=== PATIENT | male | born 1955 | race Caucasian/White ===

== ENCOUNTER 2018-12-03 09:08 | Observation (INO) | payer OTHER ==
[2018-12-03] MEDS ORDERED: Sodium Chloride 0.9% 10 ML Syringe FLUSH PRN (09:29)
[2018-12-03] MEDS ORDERED: Sodium Chloride 0.9% 2.5 ML Syringe FLUSH PRN (09:29)
--- NOTE | 2018-12-03 09:41 | EDM.PDOC ---
ED HPI GENERAL MEDICAL PROBLEM - General Chief Complaint: Cardiovascular Problem Stated Complaint: DIZZINESS Time Seen by Provider: 12/03/18 09:25 Source of Information: Reports: Patient History Limitations: Reports: No Limitations - History of Present Illness INITIAL COMMENTS - FREE TEXT/NARRATIVE: HISTORY AND PHYSICAL: History of present illness: 63-year-old male presents to ER via private vehicle complaining of dizziness and blurry vision that started at approximately 5 AM this morning. Patient reports being seen at [facility] this morning and was told that his blood pressure was high and an EKG showed a right bundle branch block and was then sent over to the ER for further evaluation. On presentation to ER, patient reports that he feels dizzy when walking. He denies any room spinning sensation. He reports a history of high blood pressure, diabetes mellitus type II and hyperlipidemia. Patient reports that he's been taking all of his medications as prescribed and has not missed any doses. He reports being in his normal state of health recently and denies any illness. Furthermore, patient denies having any headache, sore throat, cough, shortness of breath, chest pain , palpitations, nausea, vomiting, diarrhea, constipation, numbness or tingling in extremities. Review of systems: As per history of present illness and below otherwise all systems reviewed and negative. Past medical history: As per history of present illness and as reviewed below otherwise noncontributory. Surgical history: As per history of present illness and as reviewed below otherwise noncontributory. Social history: No reported history of drug or alcohol abuse. Family history: As per history of present illness and as reviewed below otherwise noncontributory. Physical exam: HEENT: Atraumatic, normocephalic, pupils reactive, negative for conjunctival pallor or scleral icterus, mucous membranes moist, throat clear, neck supple, nontender, trachea midline. Lungs: Clear to auscultation, breath sounds equal bilaterally. Heart: S1S2, regular. Abdomen: Soft, nondistended, nontender. normal bowel sounds. Pelvis: Deferred. Genitourinary: Deferred. Rectal: Deferred. Extremities: Atraumatic. Neurovascular unremarkable. Neuro: Awake, alert, oriented. Cranial nerves II through XII unremarkable. Motor and sensory unremarkable throughout. Exam nonfocal. 5/5 strength in upper and lower extremities bilaterally. Diagnostics: CBC, CMP, Troponin, PT/INR, orthostatic vital signs CXR - no acute cardiopulmonary process EKG - right bundle branch block UA unremarkable CT head - mucosal thickening with possible air fluid level in left maxillary sinus Therapeutics: None Impression: 1. Dizziness 2. Hypokalemia Plan: 1. Patient accepted for admission by hospitalist Dr. Yang for observation. Definitive disposition and diagnosis as appropriate pending reevaluation and review of above. headache Pain Score (Numeric/FACES): 1 - Related Data Allergies Allergy/AdvReac Type Severity Reaction Status Date / Time No Known Allergies Allergy Verified 12/03/18 09:19 Home Meds: Home Meds Aspirin 81 mg PO DAILY 12/03/18 [History] Chlorthalidone 25 mg PO DAILY 12/03/18 [History] Cholecalciferol (Vitamin D3) [Vitamin D3] 4 tab PO DAILY 12/03/18 [History] Fish Oil/[place]-3 Fatty Acids [Fish Oil 1,000 MG] 1,000 mg PO BID 12/03/18 [ History] Lisinopril 20 mg PO DAILY 12/03/18 [History] Meloxicam 15 mg PO DAILY 12/03/18 [History] Metoprolol Succinate [Toprol XL 100mg] 50 mg PO DAILY 12/03/18 [History] amLODIPine [Norvasc] 10 mg PO DAILY 12/03/18 [History] atorvaSTATin Calcium [Atorvastatin Calcium] 80 mg PO BEDTIME 12/03/18 [History] metFORMIN [Glucophage] 1,000 mg PO BID 12/03/18 [History] Past Medical History Cardiovascular History: Reports: High Cholesterol, Hypertension, Other (See Below) Other Cardiovascular History: palpitations Musculoskeletal History: Reports: Arthritis Endocrine/Metabolic History: Reports: Diabetes, Type II - Past Surgical History GI Surgical History: Reports: Cholecystectomy Social & Family History - Family History Family Medical History: Noncontributory - Tobacco Use Smoking Status *Q: Never Smoker - Recreational Drug Use Recreational Drug Use: No ED ROS GENERAL - Review of Systems Review Of Systems: ROS reveals no pertinent complaints other than HPI. ED EXAM, GENERAL - Physical Exam Exam: See Below Course - Vital Signs Last Recorded V/S: Last Vital Signs Temp 96.5 F 12/03/18 09:14 Pulse 70 12/03/18 09:14 Resp 20 12/03/18 09:14 BP 159/97 H 12/03/18 09:14 Pulse Ox 98 10/15/19 09:14 Orthostatic Blood Pressure [ 143/91 Standing] Orthostatic Blood Pressure [ 139/83 Sitting] Orthostatic Blood Pressure [ 139/90 Supine] - Orders/Labs/Meds Orders: Active Orders 24 hr Category Date Time Status Patient Status [ADT] Stat ADT 12/03/18 11:00 Ordered Cardiac Monitoring [RC] . DIRECTED Care 12/03/18 09:29 Active EKG 12 Lead [EKG Documentation Completion] [RC] STAT Care 12/03/18 09:12 Active Orthostatic Vital Signs [RC] ASDIRECTED Care 12/03/18 09:29 Active MAGNESIUM [CHEM] Stat Lab 12/03/18 11:00 Ordered Sodium Chloride 0.9% [Saline Flush] Med 12/03/18 09:29 Active 10 ml FLUSH ASDIRECTED PRN Sodium Chloride 0.9% [Saline Flush] Med 12/03/18 09:29 Active 2.5 ml FLUSH ASDIRECTED PRN Saline Lock Insert [OM.PC] Stat Oth 12/03/18 09:29 Ordered Medication Orders Sodium Chloride (Saline Flush) 10 ml FLUSH ASDIRECTED PRN PRN Reason: Keep Vein Open Sodium Chloride (Saline Flush) 2.5 ml FLUSH ASDIRECTED PRN PRN Reason: Keep Vein Open Labs: Laboratory Tests 12/03/18 12/03/18 12/03/18 Range/Units 09:15 09:15 09:15 WBC 7.97 (4.0-11.0) K/uL RBC 5.12 (4.50-5.90) M/uL Hgb 15.8 (13.0-17.0) g/dL Hct 45.0 (38.0-50.0) % MCV 87.9 (80.0-98.0) fL MCH 30.9 (27.0-32.0) pg MCHC 35.1 (31.0-37.0) g/dL RDW Std Deviation 39.2 (28.0-62.0) fl RDW Coeff of Lauren 12 (11.0-15.0) % Plt Count 195 (150-400) K/uL MPV 11.90 (7.40-12.00) fL Neut % (Auto) 55.2 (48.0-80.0) % Lymph % (Auto) 23.2 (16.0-40.0) % Giles % (Auto) 11.7 (0.0-15.0) % Eos % (Auto) 9.5 H (0.0-7.0) % Baso % (Auto) 0.4 (0.0-1.5) % Neut # (Auto) 4.4 (1.4-5.7) K/uL Lymph # (Auto) 1.9 (0.6-2.4) K/uL Giles # (Auto) 0.9 H (0.0-0.8) K/uL Eos # (Auto) 0.8 H (0.0-0.7) K/uL Baso # (Auto) 0.0 (0.0-0.1) K/uL INR 0.95 Sodium 139 (136-148) mmol/L Potassium 2.8 L (3.5-5.1) mmol/L Chloride 98 (98-107) mmol/L Carbon Dioxide 30.6 (21.0-32.0) mmol/L BUN 16 (7.0-18.0) mg/dL Creatinine 1.0 (0.8-1.3) mg/dL Est Cr Clr Drug Dosing 85.45 mL/min Estimated GFR (MDRD) > 60.0 ml/min Glucose 174 H (74-106) mg/dL Calcium 9.0 (8.5-10.1) mg/dL Total Bilirubin 0.5 (0.2-1.0) mg/dL AST 26 (15-37) IU/L ALT 62 (14-63) IU/L Alkaline Phosphatase 67 (46-116) U/L Troponin I < 0.050 (0.000-0.056) ng/mL Total Protein 8.1 (6.4-8.2) g/dL Albumin 3.8 (3.4-5.0) g/dL Globulin 4.3 H (2.6-4.0) g/dL Albumin/Globulin Ratio 0.9 (0.9-1.6) Urine Color Urine Appearance Urine pH (5.0-8.0) Ur Specific [place] (1.001-1.035) Urine Protein (NEGATIVE) mg/dL Urine Glucose (UA) (NEGATIVE) mg/dL Urine Ketones (NEGATIVE) mg/dL Urine Occult Blood (NEGATIVE) Urine Nitrite (NEGATIVE) Urine Bilirubin (NEGATIVE) Urine Urobilinogen (<2.0) EU/dL Ur Leukocyte Esterase (NEGATIVE) 12/03/18 Range/Units 09:39 WBC (4.0-11.0) K/uL RBC (4.50-5.90) M/uL Hgb (13.0-17.0) g/dL Hct (38.0-50.0) % MCV (80.0-98.0) fL MCH (27.0-32.0) pg MCHC (31.0-37.0) g/dL RDW Std Deviation (28.0-62.0) fl RDW Coeff of Lauren (11.0-15.0) % Plt Count (150-400) K/uL MPV (7.40-12.00) fL Neut % (Auto) (48.0-80.0) % Lymph % (Auto) (16.0-40.0) % Giles % (Auto) (0.0-15.0) % Eos % (Auto) (0.0-7.0) % Baso % (Auto) (0.0-1.5) % Neut # (Auto) (1.4-5.7) K/uL Lymph # (Auto) (0.6-2.4) K/uL Giles # (Auto) (0.0-0.8) K/uL Eos # (Auto) (0.0-0.7) K/uL Baso # (Auto) (0.0-0.1) K/uL INR Sodium (136-148) mmol/L Potassium (3.5-5.1) mmol/L Chloride (98-107) mmol/L Carbon Dioxide (21.0-32.0) mmol/L BUN (7.0-18.0) mg/dL Creatinine (0.8-1.3) mg/dL Est Cr Clr Drug Dosing mL/min Estimated GFR (MDRD) ml/min Glucose (74-106) mg/dL Calcium (8.5-10.1) mg/dL Total Bilirubin (0.2-1.0) mg/dL AST (15-37) IU/L ALT (14-63) IU/L Alkaline Phosphatase (46-116) U/L Troponin I (0.000-0.056) ng/mL Total Protein (6.4-8.2) g/dL Albumin (3.4-5.0) g/dL Globulin (2.6-4.0) g/dL Albumin/Globulin Ratio (0.9-1.6) Urine Color YELLOW Urine Appearance CLEAR Urine pH 6.5 (5.0-8.0) Ur Specific Apex <= 1.005 (1.001-1.035) Urine Protein NEGATIVE (NEGATIVE) mg/dL Urine Glucose (UA) NEGATIVE (NEGATIVE) mg/dL Urine Ketones NEGATIVE (NEGATIVE) mg/dL Urine Occult Blood NEGATIVE (NEGATIVE) Urine Nitrite NEGATIVE (NEGATIVE) Urine Bilirubin NEGATIVE (NEGATIVE) Urine Urobilinogen 1.0 (<2.0) EU/dL Ur Leukocyte Esterase NEGATIVE (NEGATIVE) Meds: Medications Generic Name Dose Route Start Last Admin Trade Name Freq PRN Reason Stop Dose Admin Sodium Chloride 10 ml 12/03/18 09:29 Saline Flush FLUSH ASDIRECTED PRN Keep Vein Open Sodium Chloride 2.5 ml 12/03/18 09:29 Saline Flush FLUSH ASDIRECTED PRN Keep Vein Open Discontinued Medications Generic Name Dose Route Start Last Admin Trade Name Freq PRN Reason Stop Dose Admin Potassium Chloride 40 meq 12/03/18 10:39 Klor-Con M20 PO 12/03/18 10:40 ONETIME STA Departure - Departure Time of Disposition: 11:03 Disposition: Refer to Observation Condition: Fair Clinical Impression: Hypokalemia, Dizziness Referrals: PCP,Unobtain [Primary Care Provider] - Forms: ED Department Discharge Additional Instructions: The following information is given to patients seen in the emergency department who are being discharged to home. This information is to outline your options for follow-up care. We provide all patients seen in our emergency department with a follow-up referral. The need for follow-up, as well as the timing and circumstances, are variable depending upon the specifics of your emergency department visit. If you don't have a primary care physician on staff, we will provide you with a referral. We always advise you to contact your personal physician following an emergency department visit to inform them of the circumstance of the visit and for follow-up with them and/or the need for any referrals to a consulting specialist. The emergency department will also refer you to a specialist when appropriate. This referral assures that you have the opportunity for follow-up care with a specialist. All of these measure are taken in an effort to provide you with optimal care, which includes your follow-up. Under all circumstances we always encourage you to contact your private physician who remains a resource for coordinating your care. When calling for follow-up care, please make the office aware that this follow-up is from your recent emergency room visit. If for any reason you are refused follow-up, please contact the [facility] Emergency Department at and asked to speak to the emergency department charge nurse. - My Orders Last 24 Hours: My Active Orders 12/03/18 09:12 EKG 12 Lead [EKG Documentation Completion] [RC] STAT 12/03/18 09:29 Cardiac Monitoring [RC] . DIRECTED Orthostatic Vital Signs [RC] ASDIRECTED Sodium Chloride 0.9% [Saline Flush] 10 ml FLUSH ASDIRECTED PRN Sodium Chloride 0.9% [Saline Flush] 2.5 ml FLUSH ASDIRECTED PRN Saline Lock Insert [OM.PC] Stat 12/03/18 11:00 Patient Status [ADT] Stat MAGNESIUM [CHEM] Stat - Assessment/Plan Last 24 Hours: My Active Orders 12/03/18 09:12 EKG 12 Lead [EKG Documentation Completion] [RC] STAT 12/03/18 09:29 Cardiac Monitoring [RC] . DIRECTED Orthostatic Vital Signs [RC] ASDIRECTED Sodium Chloride 0.9% [Saline Flush] 10 ml FLUSH ASDIRECTED PRN Sodium Chloride 0.9% [Saline Flush] 2.5 ml FLUSH ASDIRECTED PRN Saline Lock Insert [OM.PC] Stat 12/03/18 11:00 Patient Status [ADT] Stat MAGNESIUM [CHEM] Stat
--- NOTE | 2018-12-03 09:50 | CR ---
INDICATION: Dizziness TECHNIQUE: Chest 1 view. COMPARISON: None FINDINGS: Cardiovascular and mediastinum: Heart size and vasculature are normal in caliber and appearance. Mediastinum is within normal limits. Lungs and pleural space: Lungs are clear. No sign of infiltrate or mass. No sign of pleural effusion. No pneumothorax. Bones and soft tissues: Multiple remote right upper and mid rib fractures. IMPRESSION: Unremarkable chest. Dictated by Bautista Addison MD @ 12/03/2018 9:49:02 AM Dictated by: Bautista Addison MD @ 12/03/2018 09:49:09 (Electronically Signed)
[2018-12-03 10:01] LABS: BLOOD UREA NITROGEN,BUN 16 mg/dL (7.0-18.0); CARBON DIOXIDE,CO2 30.6 mmol/L (21.0-32.0); CHLORIDE,CL 98 mmol/L (98-107); GLUCOSE RANDOM 174 mg/dL (74-106); POTASSIUM,K 2.8 mmol/L (3.5-5.1); SODIUM,NA 139 mmol/L (136-148)
[2018-12-03] MEDS ORDERED: Potassium Chloride 20 MEQ Tab.ER PO STA (10:39)
--- NOTE | 2018-12-03 10:49 | CT ---
Head CT Technique: Multiple axial sections through the brain were obtained. Intravenous contrast was not utilized. Comparison: No prior intracranial imaging is available. Findings: Moderate mucosal thickening is seen within the left maxillary sinus with questionable air-fluid level. Other paranasal sinuses that are seen appear clear. Ventricles along with basal cisterns and sulci over the convexities are mildly prominent. No abnormal parenchymal densities are seen. No evidence of intracranial hemorrhage. No midline shift or mass effect is seen. Bone window settings were reviewed which show the mastoid sinuses to appear clear. No acute calvarial abnormality is appreciated. Impression: 1. Mucosal thickening and possible air-fluid level within the left maxillary sinus raising the possibility of acute sinusitis. 2. Mild generalized atrophy. 3. No acute intracranial abnormality is otherwise seen. Diagnostic code #3 MTDD
[2018-12-03] MEDS ORDERED: Acetaminophen 325 MG Tab PO PRN (12:05)
[2018-12-03] MEDS ORDERED: Ondansetron 4 MG/2 ML SDV IVPUSH PRN (12:05)
[2018-12-03] MEDS ORDERED: Sodium Chloride 0.9% with KCl 1,000 ML IV SCH (12:15)
--- NOTE | 2018-12-03 12:21 | PCM.HP.2 ---
H&P History of Present Illness - General Date of Service: 12/03/18 Admit Problem/Dx: Admission Diagnosis/Problem Admission Diagnosis/Problem Dizziness Source of Information: Patient History Limitations: Reports: No Limitations - History of Present Illness Initial Comments - Free Text/Narative: This 63 year old male with pmh of HTN, Dm Type 2, chronic back pain presented initially to [facility] with complaints of dizziness, he was referred to ED after EKG noted to have RBBB and BP elevated 160/90s. He reports the dizziness started yesterday and continued when he woke up today. he reports he is just dizzy, it doesn't get worse with movement of his head. He doesn't feel like the room is spinning or like he is spinning, he just feels off. Mild intermittent blurred vision. Reports mild sinus congestion and sore throat. No fevers or chills at home, no neck pain, no ear pain or fullness. No sinus pressure or pain. Reports he otherwise has been feeling well at home, just thought his sinuses were a little dry feeling. He denies abdominal pain or N/V or diarrhea. No constipation. Denies chest pain or SOB. Denies history of CAD, no recent stress test and he has never been evaluated by a [employer] per his report. He reports he is complaint with all medications. He denies tobacco use, no recreational drug use and rare or social use of alcohol once a week. In the ED CBC WNL. Hypokalemia noted, 2.8. BUN 16, Cr 1.0, Mg 2.1 troponin negative. EKG revealed RBBB, no previous EKG to compare besides today's from [place]. CXR negative, remote rib fractures. Head CT reveals mucosal thickening and possible air fluid level with in left maxillary sinus, no acute intracranial abnormality is otherwise seen. Orthostatic VS stable. He was treated with Potassium 40 meq PO. Admission for observation due to dizziness and hypokalemia. PCP, [facility]. headache Pain Score (Numeric/FACES): 1 - Related Data Allergies/Adverse Reactions: Allergies Allergy/AdvReac Type Severity Reaction Status Date / Time No Known Allergies Allergy Verified 12/03/18 09:19 Home Medications: Home Meds Aspirin 81 mg PO DAILY 12/03/18 [History] Chlorthalidone 25 mg PO DAILY 12/03/18 [History] Cholecalciferol (Vitamin D3) [Vitamin D3] 4 tab PO DAILY 12/03/18 [History] Fish Oil/[place]-3 Fatty Acids [Fish Oil 1,000 MG] 1,000 mg PO BID 12/03/18 [ History] Lisinopril 20 mg PO DAILY 12/03/18 [History] Meloxicam 15 mg PO DAILY 12/03/18 [History] Metoprolol Succinate [Toprol XL 100mg] 50 mg PO DAILY 12/03/18 [History] amLODIPine [Norvasc] 10 mg PO DAILY 12/03/18 [History] atorvaSTATin Calcium [Atorvastatin Calcium] 80 mg PO BEDTIME 12/03/18 [History] metFORMIN [Glucophage] 1,000 mg PO BID 12/03/18 [History] Past Medical History Cardiovascular History: Reports: High Cholesterol, Hypertension, Other (See Below). Denies: Afib, CAD, Heart Failure, IA, Stents Other Cardiovascular History: palpitations Respiratory History: Reports: None. Denies: COPD, PE, SOB Gastrointestinal History: Reports: None Musculoskeletal History: Reports: Arthritis, Back Pain, Chronic Psychiatric History: Reports: None. Denies: Addiction, Anxiety, Depression Endocrine/Metabolic History: Reports: Diabetes, Type II, Obesity/BMI 30+ - Past Surgical History GI Surgical History: Reports: Cholecystectomy Social & Family History - Family History Family Medical History: Noncontributory - Tobacco Use Smoking Status *Q: Never Smoker - Caffeine Use Caffeine Use: Reports: Coffee, Tea - Alcohol Use Days Per Week of Alcohol Use: 1 Number of Drinks Per Day: 0 Total Drinks Per Week: 0 Alcohol Use Frequency: Rarely, Socially - Recreational Drug Use Recreational Drug Use: No Drug Use in Last 12 Months: No - Living Situation & Occupation Living situation: Reports: Occupation: Employed H&P Review of Systems - Review of Systems: Review Of Systems: See Below General: Reports: No Symptoms. Denies: Fever, Chills, Malaise HEENT: Reports: Sinus Congestion, Sore Throat (mild), Visual Changes (mild blurring intermittently). Denies: Ear Pain, Headaches, Hearing Changes Pulmonary: Reports: No Symptoms. Denies: Shortness of Breath, Wheezing, Cough, Sputum Cardiovascular: Reports: No Symptoms. Denies: Chest Pain, Palpitations, Edema Gastrointestinal: Reports: No Symptoms. Denies: Abdominal Pain, Black Stool, Bloody Stool, Diarrhea, Nausea, Vomiting Genitourinary: Reports: No Symptoms. Denies: Dysuria, Frequency, Burning Musculoskeletal: Reports: Back Pain (chronic lumbar pain) Skin: Reports: No Symptoms Psychiatric: Reports: No Symptoms Neurological: Denies: Dizziness, Numbness, Paresthesia, Seizure, Trouble Speaking, Difficulty Walking, Gait Disturbance Hematologic/Lymphatic: Reports: No Symptoms Immunologic: Reports: No Symptoms Exam - Exam Exam: See Below - Vital Signs Vital Signs: Last Vital Signs Temp 97.4 F 12/03/18 11:20 Pulse 67 12/03/18 11:20 Resp 20 12/03/18 09:14 BP 126/77 12/03/18 11:20 Pulse Ox 91 L 12/03/18 11:20 Orthostatic Blood Pressure [ 143/91 Standing] Orthostatic Blood Pressure [ 139/83 Sitting] Orthostatic Blood Pressure [ 139/90 Supine] Weight: 106.186 kg - Exam General: Alert, Oriented, Cooperative HEENT: Conjunctiva Clear, Mucosa Moist & Mcmullen, Posterior Pharynx Clear Lungs: Clear to Auscultation, Normal Respiratory Effort Cardiovascular: Regular Rate, Regular Rhythm GI/Abdominal Exam: Normal Bowel Sounds, Soft, Non-Tender Back Exam: Normal Inspection, Full Range of Motion. No: CVA Tenderness (L), CVA Tenderness (R) Extremities: Normal Inspection, Normal Range of Motion, Non-Tender, No Pedal Edema Neuro Extensive - Mental Status: Alert, Oriented x3, Normal Mood/Affect, Normal Cognition Neuro Extensive - Motor, Sensory, Reflexes: CN II-XII Intact, Normal Gait, Normal Reflexes Psychiatric: Alert, Normal Affect, Normal Mood - Patient Data Lab Results Last 24 hrs: Laboratory Results - last 24 hr 12/03/18 12/03/18 12/03/18 Range/Units 09:15 09:15 09:15 WBC 7.97 (4.0-11.0) K/uL RBC 5.12 (4.50-5.90) M/uL Hgb 15.8 (13.0-17.0) g/dL Hct 45.0 (38.0-50.0) % MCV 87.9 (80.0-98.0) fL MCH 30.9 (27.0-32.0) pg MCHC 35.1 (31.0-37.0) g/dL RDW Std Deviation 39.2 (28.0-62.0) fl RDW Coeff of Lauren 12 (11.0-15.0) % Plt Count 195 (150-400) K/uL MPV 11.90 (7.40-12.00) fL Neut % (Auto) 55.2 (48.0-80.0) % Lymph % (Auto) 23.2 (16.0-40.0) % [place] % (Auto) 11.7 (0.0-15.0) % Eos % (Auto) 9.5 H (0.0-7.0) % Baso % (Auto) 0.4 (0.0-1.5) % Neut # (Auto) 4.4 (1.4-5.7) K/uL Lymph # (Auto) 1.9 (0.6-2.4) K/uL [place] # (Auto) 0.9 H (0.0-0.8) K/uL Eos # (Auto) 0.8 H (0.0-0.7) K/uL Baso # (Auto) 0.0 (0.0-0.1) K/uL INR 0.95 Sodium 139 (136-148) mmol/L Potassium 2.8 L (3.5-5.1) mmol/L Chloride 98 (98-107) mmol/L Carbon Dioxide 30.6 (21.0-32.0) mmol/L BUN 16 (7.0-18.0) mg/dL Creatinine 1.0 (0.8-1.3) mg/dL Est Cr Clr Drug Dosing 85.45 mL/min Estimated GFR (MDRD) > 60.0 ml/min Glucose 174 H (74-106) mg/dL Calcium 9.0 (8.5-10.1) mg/dL Magnesium (1.8-2.4) mg/dL Total Bilirubin 0.5 (0.2-1.0) mg/dL AST 26 (15-37) IU/L ALT 62 (14-63) IU/L Alkaline Phosphatase 67 (46-116) U/L Troponin I < 0.050 (0.000-0.056) ng/mL Total Protein 8.1 (6.4-8.2) g/dL Albumin 3.8 (3.4-5.0) g/dL Globulin 4.3 H (2.6-4.0) g/dL Albumin/Globulin Ratio 0.9 (0.9-1.6) Urine Color Urine Appearance Urine pH (5.0-8.0) Ur Specific [place] (1.001-1.035) Urine Protein (NEGATIVE) mg/dL Urine Glucose (UA) (NEGATIVE) mg/dL Urine Ketones (NEGATIVE) mg/dL Urine Occult Blood (NEGATIVE) Urine Nitrite (NEGATIVE) Urine Bilirubin (NEGATIVE) Urine Urobilinogen (<2.0) EU/dL Ur Leukocyte Esterase (NEGATIVE) 12/03/18 12/03/18 Range/Units 09:15 09:39 WBC (4.0-11.0) K/uL RBC (4.50-5.90) M/uL Hgb (13.0-17.0) g/dL Hct (38.0-50.0) % MCV (80.0-98.0) fL MCH (27.0-32.0) pg MCHC (31.0-37.0) g/dL RDW Std Deviation (28.0-62.0) fl RDW Coeff of Lauren (11.0-15.0) % Plt Count (150-400) K/uL MPV (7.40-12.00) fL Neut % (Auto) (48.0-80.0) % Lymph % (Auto) (16.0-40.0) % [place] % (Auto) (0.0-15.0) % Eos % (Auto) (0.0-7.0) % Baso % (Auto) (0.0-1.5) % Neut # (Auto) (1.4-5.7) K/uL Lymph # (Auto) (0.6-2.4) K/uL [place] # (Auto) (0.0-0.8) K/uL Eos # (Auto) (0.0-0.7) K/uL Baso # (Auto) (0.0-0.1) K/uL INR Sodium (136-148) mmol/L Potassium (3.5-5.1) mmol/L Chloride (98-107) mmol/L Carbon Dioxide (21.0-32.0) mmol/L BUN (7.0-18.0) mg/dL Creatinine (0.8-1.3) mg/dL Est Cr Clr Drug Dosing mL/min Estimated GFR (MDRD) ml/min Glucose (74-106) mg/dL Calcium (8.5-10.1) mg/dL Magnesium 2.1 (1.8-2.4) mg/dL Total Bilirubin (0.2-1.0) mg/dL AST (15-37) IU/L ALT (14-63) IU/L Alkaline Phosphatase (46-116) U/L Troponin I (0.000-0.056) ng/mL Total Protein (6.4-8.2) g/dL Albumin (3.4-5.0) g/dL Globulin (2.6-4.0) g/dL Albumin/Globulin Ratio (0.9-1.6) Urine Color YELLOW Urine Appearance CLEAR Urine pH 6.5 (5.0-8.0) Ur Specific [place] <= 1.005 (1.001-1.035) Urine Protein NEGATIVE (NEGATIVE) mg/dL Urine Glucose (UA) NEGATIVE (NEGATIVE) mg/dL Urine Ketones NEGATIVE (NEGATIVE) mg/dL Urine Occult Blood NEGATIVE (NEGATIVE) Urine Nitrite NEGATIVE (NEGATIVE) Urine Bilirubin NEGATIVE (NEGATIVE) Urine Urobilinogen 1.0 (<2.0) EU/dL Ur Leukocyte Esterase NEGATIVE (NEGATIVE) Result Diagrams: 12/03/18 09:15 12/03/18 09:15 EKG INTERPRETATION EKG Date: 12/03/18 Rhythm: NSR Rate (Beats/Min): 80 P-Wave: Present QRS: RBBB ST-T: Depressed QT: Normal Comparison: NA - No Prior EKG *Q Meaningful Use (ADM) - VTE Risk Assess *Q Each Risk Factor Represents 1 Point: Obesity ( BMI > 25 kg/m2) Total Score 1 Point Risk Factors: 1 Each Risk Factor Represents 2 Points: Age 60 - 74 Years Total Score 2 Point Risk Factors: 2 Each Risk Factor Represents 3 Points: None Total Score 3 Point Risk Factors: 0 Each Risk Factor Represents 5 Points: None Total Score 5 Point Risk Factors: 0 Venous Thromboembolism Risk Factor Score *Q: 3 - Problem List (1) Dizziness SNOMED Code(s): 725206850, 681077672 ICD Code: R42 - DIZZINESS AND GIDDINESS Status: Acute Current Visit: Yes (2) Hypokalemia SNOMED Code(s): 33346299 ICD Code: E87.6 - HYPOKALEMIA Status: Acute Current Visit: Yes (3) Acute sinusitis SNOMED Code(s): 96362717 ICD Code: J01.90 - ACUTE SINUSITIS, UNSPECIFIED Status: Acute Current Visit: Yes Qualifiers: Sinusitis location: maxillary Recurrence: non-recurrent Qualified Code(s) : J01.00 - Acute maxillary sinusitis, unspecified (4) HTN (hypertension) SNOMED Code(s): 72308595 ICD Code: I10 - ESSENTIAL (PRIMARY) HYPERTENSION Status: Chronic Current Visit: Yes (5) DM type 2 (diabetes mellitus, type 2) SNOMED Code(s): 83021265 ICD Code: E11.9 - TYPE 2 DIABETES MELLITUS WITHOUT COMPLICATIONS Status: Chronic Current Visit: Yes Qualifiers: Diabetes mellitus superintendent marine oil terminal insulin use: without fpc use Diabetes mellitus complication status: without complication Qualified Code(s): E11.9 - Type 2 diabetes mellitus without complications Problem List Initiated/Reviewed/Updated: Yes Orders Last 24hrs: Active Orders 24 hr Category Date Time Status Admission Status [Patient Status] [ADT] Stat ADT 12/03/18 11:04 Active Ambulate [RC] ASDIRECTED Care 12/03/18 12:05 Active Blood Glucose Check, Bedside [RC] TIDAC Care 12/03/18 12:09 Active Cardiac Monitoring [RC] . DIRECTED Care 12/03/18 09:29 Active EKG 12 Lead [EKG Documentation Completion] [RC] STAT Care 12/03/18 09:12 Active Orthostatic Vital Signs [RC] ASDIRECTED Care 12/03/18 09:29 Active Oxygen Therapy [RC] PRN Care 12/03/18 12:05 Active Telemetry Monitoring [Cardiac Monitoring] [RC] . Care 12/03/18 12:12 Ordered DIRECTED Up ad Lizeth [RC] ASDIRECTED Care 12/03/18 12:05 Active VTE/DVT Education [RC] PER UNIT ROUTINE Care 12/03/18 12:05 Active Vital Signs [RC] Q4H Care 12/03/18 12:05 Active Consult to Physical Therapy [PT Evaluation and Cons 12/03/18 12:04 Active Treatment] [CONS] Routine [employer] Diet [DIET] Diet 12/03/18 Lunch Active BASIC METABOLIC PANEL,BMP [CHEM] Routine Lab 12/03/18 21:00 Ordered GLYCOSYLATED HEMOGLOBIN,HGBA1C [CHEM] Routine Lab 12/03/18 12:08 Ordered Acetaminophen [Tylenol] Med 12/03/18 12:05 Ordered 650 mg PO Q4H PRN Aspirin Med 12/04/18 09:00 Ordered 81 mg PO DAILY Fluticasone Propionate [Flonase] Med 12/03/18 12:15 Ordered See Dose Instructions NASBOTH DAILY Insulin Aspart [NovoLOG] Med 12/03/18 17:00 Ordered See Protocol SUBCUT TIDAC Loratadine [Claritin] Med 12/03/18 12:15 Ordered 10 mg PO DAILY Ondansetron [Zofran] Med 12/03/18 12:05 Ordered 4 mg IVPUSH Q4H PRN Sodium Chloride 0.9% [Saline Flush] Med 12/03/18 09:29 Active 10 ml FLUSH ASDIRECTED PRN Sodium Chloride 0.9% [Saline Flush] Med 12/03/18 09:29 Active 2.5 ml FLUSH ASDIRECTED PRN Sodium Chloride 0.9% with KCl [Normal Saline with 40 Med 12/03/18 12:15 Active mEq KCl] 1,000 ml IV ASDIRECTED atorvaSTATin Calcium [Atorvastatin Calcium] Med 12/03/18 21:00 Ordered 80 mg PO BEDTIME Saline Lock Insert [OM.PC] Stat Oth 12/03/18 09:29 Ordered Resuscitation Status Routine Resus Stat 12/03/18 12:05 Ordered Medication Orders Acetaminophen (Tylenol) 650 mg PO Q4H PRN PRN Reason: Pain (Mild 1-3)/fever Aspirin (Aspirin) 81 mg PO DAILY [facility] Fluticasone Propionate (Flonase) 0 gm NASBOTH DAILY [facility] Potassium Chloride/Sodium Chloride (Normal Saline With 40 Meq Kcl) 1,000 mls @ 125 mls/hr IV ASDIRECTED [facility] Stop: 12/03/18 20:14 Insulin Aspart (Novolog) 0 unit SUBCUT TIDAC [facility]; Protocol Loratadine (Claritin) 10 mg PO DAILY [facility] Non-Formulary Medication (Atorvastatin Calcium [Atorvastatin Calcium]) 80 mg PO BEDTIME [facility] Ondansetron HCl (Zofran) 4 mg IVPUSH Q4H PRN PRN Reason: Nausea Sodium Chloride (Saline Flush) 10 ml FLUSH ASDIRECTED PRN PRN Reason: Keep Vein Open Sodium Chloride (Saline Flush) 2.5 ml FLUSH ASDIRECTED PRN PRN Reason: Keep Vein Open Assessment/Plan Comment:: This 63 year old male admitted with dizziness, hypokalemia and acute sinusitis 1. Dizziness: CT of head obtained, revealed maxillary sinusitis with air fluid levels. Consult PT to further evaluate dizziness. For acute sinusitis, likely allergic vs viral, Flonase and Loratidine. Monitor for improvement 2. Hypokalemia: 2.8 in ED, given 40 meq PO. Will given another 40 MEQ IV x 1 now. Repeat BMP in evening. Hold Chlorathalidone. 3. RBBB on EKG: Noted, reports he is unsure if this is new. Denies every being told this before. No history of CAD or IA. Will need cardiology outpatient follow up. Troponin negative. No chest pain. 4. HTN: Stable now. Took all meds this morning. Monitor. Orthostatic VS stable as well. 5. Dm Type 2; Hold PO Metformin. Novolog SSI with meals. Check a1c. VTE prophylaxis: Lovenox. Dispo: 1 day - Mortality Measure Prognosis:: Good
[2018-12-03] MEDS: Fluticasone Propionate Nasal Spray 16 GM Bottle NASBOTH SCH (12:49)
[2018-12-03] MEDS: Loratadine 10 MG Tab PO SCH (12:49)
[2018-12-03] MEDS ORDERED: Potassium Chloride 20 MEQ Tab.ER PO ONE (17:00)
[2018-12-03] MEDS: Insulin Aspart 100 Units/ML 3 ML Pen SUBCUT SCH (17:17)
[2018-12-03] MEDS ORDERED: atorvaSTATin 40 MG Tab PO SCH (21:00)
[2018-12-03] MEDS: Sodium Chloride 0.9% 1,000 ML IV SCH ×2 (21:06→21:07)
[2018-12-03 21:30] LABS: BLOOD UREA NITROGEN,BUN 16 mg/dL (7.0-18.0); CARBON DIOXIDE,CO2 29.2 mmol/L (21.0-32.0); CHLORIDE,CL 104 mmol/L (98-107); GLUCOSE RANDOM 173 mg/dL (74-106); POTASSIUM,K 3.4 mmol/L (3.5-5.1); SODIUM,NA 140 mmol/L (136-148)
[2018-12-04] MEDS: Sodium Chloride 0.9% 1,000 ML IV SCH (05:28)
[2018-12-04 05:34] LABS: BLOOD UREA NITROGEN,BUN 13 mg/dL (7.0-18.0); CARBON DIOXIDE,CO2 26.5 mmol/L (21.0-32.0); CHLORIDE,CL 106 mmol/L (98-107); GLUCOSE RANDOM 145 mg/dL (74-106); POTASSIUM,K 3.3 mmol/L (3.5-5.1); SODIUM,NA 142 mmol/L (136-148)
[2018-12-04] MEDS: Insulin Aspart 100 Units/ML 3 ML Pen SUBCUT SCH ×2 (07:31→11:39)
[2018-12-04] MEDS ORDERED: Potassium Chloride 20 MEQ Tab.ER PO ONE (07:54)
[2018-12-04] MEDS: Loratadine 10 MG Tab PO SCH (08:40)
[2018-12-04] MEDS: Fluticasone Propionate Nasal Spray 16 GM Bottle NASBOTH SCH (08:41)
[2018-12-04] MEDS ORDERED: Aspirin 81 MG Tab.Chew PO SCH (09:00)
--- NOTE | 2018-12-04 12:35 | PCM.DCSUM1 ---
Discharge Summary - Hospital Course Brief History: This 63 year old male with pmh of HTN, Dm Type 2, chronic back pain presented initially to [facility] with complaints of dizziness, he was referred to ED after EKG noted to have RBBB and BP elevated 160/90s. He reports the dizziness started yesterday and continued when he woke up today. he reports he is just dizzy, it doesn't get worse with movement of his head. He doesn't feel like the room is spinning or like he is spinning, he just feels off. Mild intermittent blurred vision. Reports mild sinus congestion and sore throat. No fevers or chills at home, no neck pain, no ear pain or fullness. No sinus pressure or pain. Reports he otherwise has been feeling well at home, just thought his sinuses were a little dry feeling. He denies abdominal pain or N/V or diarrhea. No constipation. Denies chest pain or SOB. 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 He reports he is complaint with all medications. He denies tobacco use, no recreational drug use and rare or social use of alcohol once a week. In the ED CBC WNL. Hypokalemia noted, 2.8. BUN 16, Cr 1.0, Mg 2.1 troponin negative. EKG revealed RBBB, no previous EKG to compare besides today's from [place]. CXR negative, remote rib fractures. Head CT reveals mucosal thickening and possible air fluid level with in left maxillary sinus, no acute intracranial abnormality is otherwise seen. Orthostatic VS stable. He was treated with Potassium 40 meq PO. Admission for observation due to dizziness and hypokalemia. PCP, [facility]. Diagnosis: Stroke: No - Discharge Data Discharge Date: 12/04/18 Discharge Disposition: Home, Self-Care 01 Condition: Good - Referral to Home Health Primary Care Physician: PCP None - Discharge Diagnosis/Problem(s) (1) Dizziness SNOMED Code(s): 496498686, 038466585 ICD Code: R42 - DIZZINESS AND GIDDINESS Status: Acute (2) Hypokalemia SNOMED Code(s): 19891878 ICD Code: E87.6 - HYPOKALEMIA Status: Acute (3) Acute sinusitis SNOMED Code(s): 68709790 ICD Code: J01.90 - ACUTE SINUSITIS, UNSPECIFIED Status: Acute Qualifiers: Sinusitis location: maxillary Recurrence: non-recurrent Qualified Code(s) : J01.00 - Acute maxillary sinusitis, unspecified (4) HTN (hypertension) SNOMED Code(s): 23978005 ICD Code: I10 - ESSENTIAL (PRIMARY) HYPERTENSION Status: Chronic (5) DM type 2 (diabetes mellitus, type 2) SNOMED Code(s): 93893634 ICD Code: E11.9 - TYPE 2 DIABETES MELLITUS WITHOUT COMPLICATIONS Status: Chronic Qualifiers: Diabetes mellitus longterm insulin use: without longterm use Diabetes mellitus complication status: without complication Qualified Code(s): E11.9 - Type 2 diabetes mellitus without complications - Patient Summary/Data Consults: Consultations 12/03/18 12:04 Consult to Physical Therapy [PT Evaluation and Treatment] [CONS] Routine - Patient Instructions Diet: Heart Healthy Diet, Diabetic Diet Activity: As Tolerated Driving: May Drive Today Showering/Bathing: May Shower Notify Provider of: Fever, Increased Pain, Swelling and Redness, Drainage, Nausea and/or Vomiting Other/Special Instructions: Hold Chlorthalidone. Check BP at home. Follow up with PCP for BP recheck/ - Discharge Plan *PRESCRIPTION DRUG MONITORING PROGRAM REVIEWED*: Not Applicable *COPY OF PRESCRIPTION DRUG MONITORING REPORT IN PATIENT [place]ACO: Not Applicable Home Medications: Home Meds Cholecalciferol (Vitamin D3) [Vitamin D3] 4 tab PO DAILY 12/03/18 [History] Fish Oil/[place]-3 Fatty Acids [Fish Oil 1,000 MG] 2,000 mg PO BID 12/03/18 [ History] Lisinopril 20 mg PO DAILY 12/03/18 [History] Meloxicam 15 mg PO DAILY 12/03/18 [History] Metoprolol Succinate [Toprol XL 100mg] 50 mg PO DAILY 12/03/18 [History] amLODIPine [Norvasc] 10 mg PO DAILY 12/03/18 [History] atorvaSTATin Calcium [Atorvastatin Calcium] 80 mg PO BEDTIME 12/03/18 [History] Aspirin [Halfprin] 81 mg PO DAILY 12/04/18 [History] Fluticasone Propionate [Flonase] 1 spray NASBOTH DAILY bottle 12/04/18 [Rx] Loratadine [Claritin] 10 mg PO DAILY tablet 12/04/18 [Rx] metFORMIN HCl [Metformin HCl ER] 1,000 mg PO BIDMEALS 12/04/18 [History] Oxygen Therapy Mode: Room Air Patient Handouts: Hypokalemia, Dizziness, [id number] Referrals: [facility] [Outside] [facility] [Outside] - 12/10/18 10:00 am Jaren Moreno MD [Physician] - 01/07/19 9:30 am - Discharge Summary/Plan Comment DC Time >30 min.: No Discharge Summary/Plan Comment: Admitting Diagnoses: Dizziness Blurred vision Hypokalemia Discharge Diagnoses: Dehydration Hypokalemia Orthostasis Edgardo was admitted for dizziness, but he later stated it was more when he stood that he noticed double vision. he was evaluated by PT, which did not feel it was vestibular in nature. Orthostatic BP re-evaluated and did show a 15 point drop from sitting to standing and he noticed the double vision. He was continued on IVfs and potassium replaced. His chlorthalidone was held. Today he is doing better, he has been up ambulating and doing well, no double vision. BP stable. He will continue all home meds, but hold Chlorthalidone and monitor BP at home. He will need to follow up with PCP regarding this and to follow BP. Hypokalemia stable this morning. Due to his newly found RBBB, we will arrange work with Cardiology. He is to return to ED or clinic if concerns should arise. - Patient Data Vitals - Most Recent: Last Vital Signs Temp 97.2 F 12/04/18 08:00 Pulse 75 12/04/18 08:00 Resp 16 12/04/18 08:00 BP 140/86 12/04/18 08:00 Pulse Ox 91 L 12/04/18 08:00 Orthostatic Blood Pressure [ 158/89 Standing] Orthostatic Blood Pressure [ 149/81 Sitting] Orthostatic Blood Pressure [ 158/97 Supine] Weight - Most Recent: 106.186 kg I&O - Last 24 hours: Intake & Output 12/03/18 12/04/18 12/04/18 22:59 06:59 14:59 Intake Total 936 2239 1576 Output Total 800 800 550 Balance 136 1439 1026 Lab Results - Last 24 hrs: Laboratory Results - last 24 hr 12/03/18 12/03/18 12/03/18 Range/Units 09:15 12:47 17:05 Sodium (136-148) mmol/L Potassium (3.5-5.1) mmol/L Chloride (98-107) mmol/L Carbon Dioxide (21.0-32.0) mmol/L BUN (7.0-18.0) mg/dL Creatinine (0.8-1.3) mg/dL Est Cr Clr Drug Dosing mL/min Estimated GFR (MDRD) ml/min Glucose (74-106) mg/dL POC Glucose 122 H 147 H (60-110) mg/dL Hemoglobin A1c 7.0 H (4.5-6.2) % Calcium (8.5-10.1) mg/dL 12/03/18 12/04/18 12/04/18 Range/Units 21:04 04:58 06:07 Sodium 140 142 (136-148) mmol/L Potassium 3.4 L 3.3 L (3.5-5.1) mmol/L Chloride 104 106 (98-107) mmol/L Carbon Dioxide 29.2 26.5 (21.0-32.0) mmol/L BUN 16 13 (7.0-18.0) mg/dL Creatinine 0.9 0.9 (0.8-1.3) mg/dL Est Cr Clr Drug Dosing 94.94 94.94 mL/min Estimated GFR (MDRD) > 60.0 > 60.0 ml/min Glucose 173 H 145 H (74-106) mg/dL POC Glucose 136 H (60-110) mg/dL Hemoglobin A1c (4.5-6.2) % Calcium 8.8 8.7 (8.5-10.1) mg/dL Med Orders - Current: Current Medications Discontinued Medications Acetaminophen (Tylenol) 650 mg PO Q4H PRN PRN Reason: Pain (Mild 1-3)/fever Aspirin (Aspirin) 81 mg PO DAILY [facility] Last Admin: 12/04/18 08:42 Dose: Not Given Atorvastatin Calcium (Lipitor) 80 mg PO BEDTIME [facility] Last Admin: 12/03/18 21:10 Dose: Not Given Fluticasone Propionate (Flonase) 0 gm NASBOTH DAILY [facility] Last Admin: 12/04/18 08:41 Dose: 1 spray Potassium Chloride/Sodium Chloride (Normal Saline With 40 Meq Kcl) 1,000 mls @ 125 mls/hr IV ASDIRECTED [facility]ARCUS Stop: 12/03/18 20:14 Last Admin: 12/03/18 12:52 Dose: 125 mls/hr Sodium Chloride (Normal Saline) 1,000 mls @ 100 mls/hr IV Q10H [facility] Last Admin: 12/04/18 05:28 Dose: 100 mls/hr Insulin Aspart (Novolog) 0 unit SUBCUT TIDAC [facility]; Protocol Last Admin: 12/04/18 11:39 Dose: Not Given Loratadine (Claritin) 10 mg PO DAILY [facility] Last Admin: 12/04/18 08:40 Dose: 10 mg Ondansetron HCl (Zofran) 4 mg IVPUSH Q4H PRN PRN Reason: Nausea Potassium Chloride (Klor-Con M20) 40 meq PO ONETIME STA Stop: 12/03/18 10:40 Last Admin: 12/03/18 11:06 Dose: 40 meq Potassium Chloride (Klor-Con M20) 40 meq PO ONETIME ONE Stop: 12/03/18 17:01 Last Admin: 12/03/18 17:15 Dose: 40 meq Potassium Chloride (Klor-Con M20) 40 meq PO ONETIME ONE Stop: 12/04/18 07:55 Last Admin: 12/04/18 08:37 Dose: 40 meq Sodium Chloride (Saline Flush) 10 ml FLUSH ASDIRECTED PRN PRN Reason: Keep Vein Open Sodium Chloride (Saline Flush) 2.5 ml FLUSH ASDIRECTED PRN PRN Reason: Keep Vein Open
== END 2018-12-04 11:41 | disposition home or self-care (01) ==
LOC: MW.ED 09:08 → MW.MS 11:24
PROVIDERS: ADMIT Internal Medicine; ATTEND Internal Medicine
DX: R42 Dizziness and giddiness (principal); E87.6 Hypokalemia; J01.00 Acute maxillary sinusitis, unspecified; I10 Essential (primary) hypertension; E11.9 Type 2 diabetes mellitus without complications; I45.10 Unspecified right bundle-branch block; E78.00 Pure hypercholesterolemia, unspecified; M19.90 Unspecified osteoarthritis, unspecified site
CPT/HCPCS: 36415; 70450; 71045; 80048; 80053; 81003; 82962; 83036; 83735; 84484; 85025; 85610; 93005; 96361; 96365; 96366; 97161; 99285; A9270; G0378; J3480; J7040